=== PATIENT | female | born 1990 | race Caucasian/White ===

== ENCOUNTER 2021-07-20 19:25 | Emergency (ER) | payer OTHER ==
[2021-07-20 20:38] LABS: HEMOGLOBIN 12.3 gm/dl (12.3-15.3); RED BLOOD COUNT 4.11 M/UL (4.00-5.10); WHITE BLOOD COUNT 10.2 K/UL (4.5-11.0)
[2021-07-20 21:05] LABS: BUN/CREATININE RATIO 24 (0-10)
== END 2021-07-20 22:49 | disposition home or self-care (01) ==
LOC: ER1 19:25
PROVIDERS: Preventive Medicine Occupational Medicine
DX: S39.012A Strain of muscle, fascia and tendon of lower back, initial encounter (principal); G89.29 Other chronic pain; I10 Essential (primary) hypertension; G43.909 Migraine, unspecified, not intractable, without status migrainosus; X58.XXXA Exposure to other specified factors, initial encounter
CPT/HCPCS: 71045; 72131; 80053; 83690; 85025; 85652; 86140; 93005; 96374; 96375; 96376; 99284; J1170; J1885; J2405

== ENCOUNTER 2021-11-05 16:25 | Emergency (ER) | payer OTHER ==
[2021-11-05 18:43] LABS: HEMOGLOBIN 11.5 gm/dl (12.3-15.3); RED BLOOD COUNT 4.25 M/UL (4.00-5.10); WHITE BLOOD COUNT 9.2 K/UL (4.5-11.0)
[2021-11-05 19:07] LABS: BUN/CREATININE RATIO 19 (0-10)
== END 2021-11-05 19:45 | disposition home or self-care (01) ==
LOC: ER1 16:25
PROVIDERS: Emergency Medicine
DX: R07.9 Chest pain, unspecified (principal); R06.02 Shortness of breath; R55 Syncope and collapse; I10 Essential (primary) hypertension
CPT/HCPCS: 71045; 80053; 82550; 82553; 84484; 85025; 85379; 93005; 99285